=== PATIENT | male | born 1960 | race Caucasian/White ===

== ENCOUNTER 2021-11-27 14:27 | Inpatient (IN) | payer OTHER ==
[2021-11-27] MEDS ORDERED: SODIUM CHLORIDE 0.9% 1,000 ML IV STA (14:38)
[2021-11-27] MEDS ORDERED: MIDAZOLAM 1 MG/ML 5 ML VIAL IV STA (14:47)
[2021-11-27] MEDS ORDERED: NALOXONE 0.4 MG/ML 1 ML VIAL IV PRN (14:50)
[2021-11-27] MEDS ORDERED: ACETAMINOPHEN SUPPOSITORY 650 MG SUPP RECTAL PRN (14:50)
[2021-11-27] MEDS: NOREPINEPHRINE 8 MG in SODIUM CHLORIDE 0.9% 250 ML IV SCH ×4 (14:57→22:23)
--- NOTE | 2021-11-27 15:06 | ED ---
General Adult HPI - General Chief complaint: Cardiac Arrest/CPR Stated complaint: Post CPR Time Seen by Provider: 11/27/21 14:33 Source: EMS, RN notes reviewed, old records reviewed Mode of arrival: EMS Limitations: altered mental status, physical limitation - History of Present Illness Initial comments: 60-year-old male who presents status post cardiac arrest with return of spontaneous circulation. Patient had been transferred from [facility] after a witnessed cardiac arrest at home. Paramedics had been called for chest pain and dyspnea. The patient subsequently had a cardiopulmonary arrest, CPR was initiated immediately by paramedics. He was in PEA rhythm throughout resuscitation. He did respond to epinephrine according to EMS ultimately received TPA at [facility] this did result in return of spontaneous circulation. He was intubated, arterial line and central line had been placed. He was started on epinephrine drip and transferred for further evaluation and treatment. TPA was administered secondary concern for pulmonary embolism as the cause for cardiac arrest given the recent trauma to the left lower extremity and external fixation performed for fracture. - Related Data Allergies Allergy/AdvReac Type Severity Reaction Status Date / Time Penicillins Allergy Unknown Verified 11/27/21 14:47 Review of Systems ROS Statement: Those systems with pertinent positive or pertinent negative responses have been documented in the HPI. ROS Other: All systems not noted in ROS Statement are negative. Past Medical History Past Medical History: Unable to Obtain History of Any Multi-Drug Resistant Organisms: Unobtainable Past Surgical History: Unable to Obtain Smoking Status: Unknown if ever smoked Past Alcohol Use History: Unable to Obtain Past Drug Use History: Unable to Obtain General Exam General appearance: obtunded Head exam: Present: atraumatic, normocephalic Eye exam: Absent: PERRL (8 mm fixed) Respiratory exam: Present: other (bl breath sounds with vent) Cardiovascular Exam: Present: regular rate, normal rhythm GI/Abdominal exam: Present: soft. Absent: distended, guarding Extremities exam: Present: other (left LE ex-fix) Neurological exam: Present: other (intubated and sedated) Skin exam: Present: cyanosis (Cyanosis of the neck and upper chest) Course Vital Signs 11/27/21 14:36 Pulse Rate 87 Respiratory 22 Rate Blood Pressure 62/39 O2 Sat by Pulse 99 Oximetry EKG Findings - EKG Comments: EKG Findings:: EKG: Sinus rhythm prolonged CO low-voltage rate of 87, CO interval 203, QRS duration 81, QTC [address] segment elevation. Medical Decision Making - Medical Decision Making 60-year-old male transferred with return of spontaneous circulation, suspected massive pulmonary embolism after out of Hospital cardiac arrest. His total resuscitation efforts that lasted approximately 30-35 minutes. His pupils are fixed and dilated upon arrival. He is hypotensive and cyanotic. Pressor support will be continued. He will receive complete reevaluation of laboratory testing and ABG. Additionally receive her CT of the brain and CT angiography of the chest to evaluate for pulmonary embolism. These tests are pending. I discussed case with the admitting physician Dr. Cox and the netezza developer Dr. Hopper. He will be admitted to our ICU for further evaluation and treatment. Repeat chest x-ray, repeat laboratory testing, head CT, CT angiography results are pending. Angiography did show pulmonary emboli. I discussed case with Dr. Caldwell who will evaluate the patient in consultation. And does recommend heparin be initiated. This has been ordered. - Lab Data Result diagrams: 11/27/21 15:26 11/27/21 15:26 Critical Care Time Critical Care Time: Yes Total Critical Care Time: 35 Disposition Clinical Impression: Cardiac arrest, Signs of return of spontaneous circulation, Dependent on ventilator, Acute Massive Pulmonary Embolism Disposition: ADMITTED IP TO THIS [facility] Condition: Serious Is patient prescribed a controlled substance at d/c from ED?: No Decision to Admit Reason: Admit from EC Decision Date: 11/27/21 Decision Time: 15:30
[2021-11-27] MEDS ORDERED: NOREPINEPHRINE 8 MG in SODIUM CHLORIDE 0.9% 250 ML IV ONE (15:15)
--- NOTE | 2021-11-27 15:22 | XR ---
EXAMINATION TYPE: XR chest 1V portable DATE OF EXAM: 11/27/2021 COMPARISON: NONE HISTORY: Cardiac arrest TECHNIQUE: Single frontal view of the chest is obtained. FINDINGS: Endotracheal tube is superimposed over the tracheal air column. Right lung apex not entire ly included on exam. There is no evident pneumothorax. Lung volumes are low. Cardiac mediastinal silh ouette is within normal limits. No pleural effusion. Lung volumes are low. There are overlying artifa cts. IMPRESSION: No evident complication status post intubation. Expiratory exam.
[2021-11-27 15:31] LABS: HCT 30.5 % (39.0-53.0); HGB 9.4 gm/dL (13.0-17.5); MCH 33.7 pg (25.0-35.0); MCHC 30.7 g/dL (31.0-37.0); MCV 109.8 fL (80.0-100.0); RBC 2.78 m/uL (4.30-5.90); WBC 18.8 k/uL (3.8-10.6)
[2021-11-27 15:32] LABS: Hypochromasia Marked; Macrocytosis Marked; Platelet Count 164 k/uL (150-450); RDW 13.5 % (11.5-15.5)
--- NOTE | 2021-11-27 15:35 | CT ---
EXAMINATION TYPE: CT brain wo con DATE OF EXAM: 11/27/2021 COMPARISON: None HISTORY: Cardiac arrest. CT DLP: 1181.[address] of the brain was performed. The ventricles, basal cisterns and sulci overlying the cerebral convexities demonstrate mild enlargem ent. There is no evidence for intracranial hemorrhage or sulcal effacement. There is decreased attenuation about the periventricular white matter and deep white matter of both c erebral hemispheres, compatible with chronic small vessel ischemia. Differential diagnosis does inclu de demyelination. No mass effects are seen.No midline shift. Osseous calvarium is intact. If symptoms persist consider MRI. IMPRESSION: 1. Age related atrophic and chronic small vessel ischemic change without acute intracranial process s een at this time.
--- NOTE | 2021-11-27 15:39 | CT ---
EXAMINATION TYPE: CT angio chest DATE OF EXAM: 11/27/2021 COMPARISON: None HISTORY: Possible PE. Pt intubated, cardiac arrest. CT DLP: 412.5 mGycm CONTRAST: CT chest with contrast and 3D reconstruction with MIP imaging is performed with IV Contrast, patient injected with 100 mL of Isovue 370. Contrast-enhanced CT of the chest was performed through the course of the pulmonary arteries with roslyn g and mediastinal window settings submitted. 3D reconstruction with MIP imaging was also performed. PULMONARY ARTERIES: There are filling defects noted within first, second and third order branches of the pulmonary arteries left greater than right. No evidence for saddle component. LUNGS: Endotracheal tube is in place. The lungs are clear and free of infiltrate. No evidence for ate lectasis. No pulmonary nodule or mass is detected. No pleural effusion. MEDIASTINUM: Thoracic aorta is of normal caliber. The heart is mildly enlarged. No evidence for medi astinal mass. No mediastinal lymph nodes greater than 1cm. HILAR STRUCTURES: No evidence for mass. No hilar lymph nodes greater than 1 cm. UPPER ABDOMEN: No significant abnormality is seen. IMPRESSION: 1. Findings compatible with moderate pulmonary embolism.
[2021-11-27 15:41] LABS: Albumin 1.9 g/dL (3.5-5.0); Calcium 8.7 mg/dL (8.4-10.2); Magnesium 3.3 mg/dL (1.6-2.3); Potassium 4.8 mmol/L (3.5-5.1); Total Bilirubin 0.6 mg/dL (0.2-1.3); Total Protein 3.8 g/dL (6.3-8.2)
[2021-11-27 15:58] LABS: ABG Base Excess -22.5 mmol/L; ABG HCO3 11 mmol/L (21-25); ABG Oxygen Saturation 99.1 % (94-97); ABG PCO2 57 mmHg (35-45); ABG PO2 >400 mmHg (83-108); ABG TCO2 12 mmol/L (19-24)
[2021-11-27 15:59] LABS: Glucose,Whole Blood 301 mg/dL (75-99)
[2021-11-27 16:00] LABS: ABG PH 6.88 (7.35-7.45)
[2021-11-27] MEDS ORDERED: HEPARIN SODIUM 1,000 UN/ML (10ML VL) IV PRN (16:00)
[2021-11-27] MEDS ORDERED: HEPARIN SOD,PORK IN 0.45% NACL 25,000 UNIT in 0.45% NACL 1 250ML.BAG IV SCH (16:00)
[2021-11-27] MEDS ORDERED: HEPARIN SODIUM 1,000 UN/ML (10ML VL) IV ONE (16:00)
[2021-11-27 16:10] LABS: Band Neutrophils % 2 %; Eosinophils # (M) 0.38 k/uL (0-0.7); Lymphocytes # (M) 6.96 k/uL (1.0-4.8); Metamyelocytes # (M) 0.94 k/uL (0); Metamyelocytes % 5 %; Monocytes # (M) 0.38 k/uL (0-1.0); Myelocytes # (M) 0.56 k/uL (0); Myelocytes % 3 %; Neutrophils % (M) 51 %; Nucleated Red Blood Cells 0 /100 WBC (0-0); Poikilocytosis (M) Present; Total Cells Counted 200
--- NOTE | 2021-11-27 16:15 | P.HPIM ---
History of Present Illness H&P Date: 11/27/21 This is a 60-year-old male who was recently admitted and discharged at [facility] for recent left lower extremity and external fixation for a fracture. EMS was called and notified for shortness of breath from patient's home and ultimately a witnessed cardiac arrest and CPR was initiated and patient also received multiple rounds of epinephrine with no response and continued CPR in progress to [facility] and there was a concern for a PE as patient was not anticoagulated after his recent surgery. Patient did receive TPA at [facility] and resulted in return of spontaneous circulation. Patient was brought here for further evaluation and critical care monitoring. Initial lab testing shows a white blood count of 18.8 and hemoglobin is 9.4, platelets are 164, sodium is 143, potassium is 4.8, and cardiac site is 9, chloride is 110, BUN is 20, creatinine is 1.92, lactic acid is 16.6, calcium is 8.7, magnesium is 3.3, AST is 41, ALT is 428, alk phos is 71, troponin is 9.560. Patient is extremely hypotensive requiring pressor support and is currently not on any sedation and unresponsive. On exam patient's pupils are fixed and dilated with no response and patient is cyanotic. Patient is currently intubated with an FiO2 of 100% and PEEP is 8. Intensive care contacted and patient will be transferred to ICU for close monitoring. Vascular surgery consulted as well. Patient also had CT of the brain which shows age-related atrophic and chronic small vessel ischemic change without acute intracranial process seen at this time there is a decreased attenuation about the periventricular white matter and deep white matter of both cerebral hemispheres compatible with small vessel ischemia. Patient also underwent CT of the chest showing findings compatible with moderate pulmonary embolism and there are filling defects noted within the first second and third order branches of the pulmonary arteries left greater than right with no evidence for saddle component. Chest x-ray shows no evident complication status post intubation with no evident pneumothorax and no pleural effusion. Review of systems: Unable to obtain as patient had cardiac arrest and is now i ntubated Active Medications Acetaminophen (Acetaminophen Suppository 650 Mg Supp) 650 mg RECTAL Q4HR PRN PRN Reason: Fever And/ Or Mild Pain Sodium Chloride (Saline 0.9%) 1,000 mls @ 75 mls/hr IV .[id number] STA Stop: 11/28/21 03:57 Propofol 1,000 mg/ IV Solution 100 mls @ 0 mls/hr IV .Q0M [facility]; Protocol Norepinephrine Bitartrate 8 mg (/ Sodium Chloride) 258 mls @ 7.68 mls/hr IV .Q24H [facility]; Protocol Last Admin: 11/27/21 14:57 Dose: 0.4 mcg/kg/min, 61.439 mls/hr Documented by: Naloxone HCl (Naloxone 0.4 Mg/Ml 1 Ml Vial) 0.2 mg IV Q2M PRN PRN Reason: Opioid Reversal PHYSICAL EXAMINATION: GENERAL: The patient is currently intubated and not currently on any sedation and continues to be comatose and unresponsive HEENT: Pupils are fixed and dilated with no reaction to light. No scleral icterus. No conjunctival pallor. Normocephalic, atraumatic. No pharyngeal erythema. No thyromegaly. CARDIOVASCULAR: S1 and S2 muffled PULMONARY: diminished breath sounds bilaterally with no wheezing or rhonchi noted. ABDOMEN: soft. Thin. Nontender on exam. obese. non-distended, normoactive bowel sounds. No palpable organomegaly. MUSCULOSKELETAL: No joint swelling or deformity. EXTREMITIES: There is cyanosis noted to the upper chest neck and face and pallor to the left lower extremity and with pins, rods, fixation noted from recent fracture repair and no palpable pulses. NEUROLOGICAL: Unable to assess as patient is intubated and comatose SKIN: cyanosis as mentioned previously Assessment: Cardiac arrest, witnessed with return of spontaneous circulation, at [facility] status post TPA infusion for suspected PE at [facility] Status post mechanical ventilation with no sedation and patient is comatose Elevated troponin of 9.560 Hypermagnesemia of 3.3 Increased LFTs Elevated creatinine possible acute renal failure Leukocytosis, possibly reactive Lactic acidosis with a plasma lactic acid of 16.6 most likely secondary to CPR Positive pulmonary embolism as noted on CT here Recent left lower extremity external fixation for fracture at [facility] Hypotension requiring pressors Full code Plan: Recommend to continue with current medications and management per ICU carrot harvester. Patient was given TPA at [facility] with ROSC obtained and CTA was done here which was positive for pulmonary embolism. CT of the brain was unremarkable. Patient is hypotensive requiring pressor support and does have propofol ordered although not requiring it and continues to be comatose. Patient overall prognosis is extremely poor and extremely guarded and will be monitored closely in the ICU. Vascular surgery consulted as well, which is p ending. Patient had recent external fixation and there is hardware noted of the left lower extremity and there is extreme pallor with no pulses palpable of the left lower extremity. Apparently patient had not been receiving anticoagulation after the surgery as they were possible issues with the insurance as [facility] and family is also unsure of this. Critical condition and prognosis was discussed with the family and would like to keep the patient full code for now until further assessment by carrot harvester. Patient is mechanically intubated with an FiO2 100% and PEEP is 8. Due to multiple complex medical issues, prognosis is extremely guarded The impression and plan of care has been dictated by Jayla Covarrubias, nurse practitioner as directed. Dr. Andre Cox MD I have performed a history and examination and MDM of this patient, discussed the same with the dictator, and agree with the dictator's assessment and plan as written ,documented as a scribe. Based on total visit time, I have performed more than 50% of the visit. Any additional findings or plans will be noted. Review of Systems ROS unobtainable: due to endotracheal tube, due to mental status Constitutional: Denies chills, Denies fever Past Medical History Past Medical History: Unable to Obtain History of Any Multi-Drug Resistant Organisms: Unobtainable Past Surgical History: Unable to Obtain Smoking Status: Unknown if ever smoked Past Alcohol Use History: Unable to Obtain Past Drug Use History: Unable to Obtain Medications and Allergies Allergies Allergy/AdvReac Type Severity Reaction Status Date / Time Penicillins Allergy Unknown Verified 11/27/21 14:47 Physical Exam Vitals: Vital Signs Pulse Resp BP Pulse Ox 11/27/21 14:36 87 22 62/39 99 Intake and Output 11/27/21 11/27/21 11/27/21 06:59 14:59 22:59 Other: Weight 79.379 kg Results CBC & Chem 7: 11/27/21 15:26 11/27/21 15:26 Assessment and Plan Time with Patient: Greater than 30
[2021-11-27] MEDS ORDERED: SODIUM BICARB 8.4% 50 ML SYR (1 MEQ/ML) IV STA ×2 (16:22→18:17)
[2021-11-27 16:50] LABS: Glucose,Whole Blood 289 mg/dL (75-99)
[2021-11-27 17:05] VITALS: BP 134/77
[2021-11-27] MEDS ORDERED: SODIUM CHLORIDE 0.9% 1,000 ML IV ONE ×2 (17:42→18:09)
[2021-11-27] MEDS ORDERED: SODIUM CHLORIDE 0.9% 1,000 ML IV SCH (17:45)
[2021-11-27 18:03] LABS: ABG HCO3 12 mmol/L (21-25); ABG Oxygen Saturation 97.7 % (94-97); ABG PCO2 44 mmHg (35-45); ABG PO2 150 mmHg (83-108); ABG TCO2 14 mmol/L (19-24); Allen Test Performed? Yes
[2021-11-27 18:05] LABS: ABG PH 7.06 (7.35-7.45)
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
--- NOTE | 2021-11-27 18:13 | P.PCN ---
Date of Procedure: 11/27/21 Preoperative Diagnosis: Cardiac arrest Postoperative Diagnosis: Cardiac arrest Procedure(s) Performed: Triple-lumen catheter insertion Anesthesia: local Surgeon: Emiliano Hopper Pathology: other Condition: critical Disposition: ICU Operative Findings: Indication: Hemodynamic monitoring/Intravenous access. A time-out was completed verifying correct patient, procedure, site, positioning, and implant(s) or special equipment if applicable. The patient was placed in a dependent position appropriate for central line placement based on the vein to be cannulated. The patients left neck was prepped and draped in sterile fashion. 1% Lidocaine was used to anesthetize the surrounding skin area. A triple lumen 9F Cordis catheter was introduced into the internal jugular vein using Seldinger technique. The catheter was threaded smoothly over the guide wire and appropriate blood return was obtained. Each lumen of the catheter was evacuated of air and flushed with sterile saline. The catheter was then sutured in place to the skin and a sterile dressing applied. Perfusion to the extremity distal to the point of catheter insertion was checked and found to be adequate. The patient tolerated the procedure well and there were no complications.
[2021-11-27] MEDS ORDERED: ASPIRIN 81 MG PO STA (18:18)
[2021-11-27 18:21] LABS: INR >10.0 (<1.2)
[2021-11-27 18:22] LABS: Partial Thromboplastin Time >200.0 sec (22.0-30.0); Prothrombin Time >130.0 sec (9.0-12.0)
[2021-11-27] MEDS ORDERED: INSULIN REGULAR BOLUS (FROM DRIP BAG) IV PRN (18:23)
--- NOTE | 2021-11-27 18:27 | XR ---
EXAMINATION TYPE: XR chest 1V portable DATE OF EXAM: 11/27/2021 COMPARISON: 11/27/2019 2:53 PM HISTORY: 60 years Male. STUDY INDICATION GIVEN: verify central line placement . TECHNIQUE: AP chest radiograph IMPRESSION: Interval placement of left jugular central venous catheter, tip is at the cavoatrial junction. Tip of endotracheal tube in the midthoracic trachea. No focal airspace opacity, pneumothorax or effusion. N ormal cardiomediastinal silhouette.
[2021-11-27] MEDS ORDERED: INSULIN REGULAR 100 UNIT in SODIUM CHLORIDE 0.9% 100 ML IV SCH (18:30)
[2021-11-27] MEDS: SODIUM BICARB 8.4% 50 ML SYR (1 MEQ/ML) IV STA (18:34)
[2021-11-27 19:15] LABS: Glucose,Whole Blood 220 mg/dL (75-99)
--- NOTE | 2021-11-27 19:26 | US ---
EXAMINATION TYPE: US venous doppler duplex LE DATE OF EXAM: 11/27/2021 6:58 PM COMPARISON: NONE CLINICAL HISTORY: s/p cardiac arrest. SIDE PERFORMED: Bilateral TECHNIQUE: The lower extremity deep venous system is examined utilizing real time linear array sonog yuliana with graded compression, doppler sonography and color-flow sonography. VESSELS IMAGED: Common Femoral Vein Deep Femoral Vein Greater Saphenous Vein * Femoral Vein Popliteal Vein Small Saphenous Vein * Proximal Calf Veins (* superficial vessels) Limited scan, patient on vent with below limitations. Right Leg: Unable to scan patient groin due to IV. Normal compressibility and flow in the imaged deep veins of the right lower extremity. Left Leg: Unable to scan popliteal vein due to device on calf holding leg steady (unable to abduct p atient leg). Abnormal compression, absent flow and hypoechoic filling defect in the distal aspect of the left femo ral vein. IMPRESSION: Deep vein thrombosis of the left distal femoral vein. Report given to @ 7:23pm to Carlos Alberto Gomez charge nurse of [facility]
[2021-11-27 20:06] LABS: Glucose,Whole Blood 193 mg/dL (75-99)
[2021-11-27] MEDS ORDERED: SODIUM CHLORIDE 0.9% 150 ML with VASOPRESSIN 60 UNIT IV SCH ×2 (21:00)
[2021-11-27] MEDS ORDERED: PANTOPRAZOLE 40 MG/10 ML VIAL IVP SCH (21:00)
[2021-11-27] MEDS: LACTATED RINGERS 2,000 ML IV SCH ×2 (21:02→22:22)
[2021-11-27 21:11] LABS: Glucose,Whole Blood 124 mg/dL (75-99)
[2021-11-27 21:20] LABS: HCT 26.2 % (39.0-53.0); HGB 8.4 gm/dL (13.0-17.5); Hypochromasia Slight; MCHC 31.9 g/dL (31.0-37.0); Macrocytosis Slight; Mean Platelet Volume 8.2; Platelet Count 276 k/uL (150-450); RBC 2.54 m/uL (4.30-5.90)
[2021-11-27 21:35] LABS: MCV 103.2 fL (80.0-100.0)
[2021-11-27 21:47] LABS: Band Neutrophils % 1 %; Eosinophils # (M) 0.35 k/uL (0-0.7); Lymphocytes # (M) 6.65 k/uL (1.0-4.8); Metamyelocytes % 2 %; Myelocytes # (M) 1.05 k/uL (0); Myelocytes % 3 %; Neutrophils % (M) 75 %; Nucleated Red Blood Cells 1 /100 WBC (0-0); Total Cells Counted 200
[2021-11-27 21:59] LABS: Prothrombin Time >130.0 sec (9.0-12.0)
[2021-11-27 22:02] LABS: INR >10.0 (<1.2); Partial Thromboplastin Time >200.0 sec (22.0-30.0)
[2021-11-27 22:04] LABS: Glucose,Whole Blood 99 mg/dL (75-99)
--- NOTE | 2021-11-27 22:31 | XR ---
EXAMINATION TYPE: XR tibia fibula LT DATE OF EXAM: 11/27/2021 COMPARISON: NONE HISTORY: 60 years Male. STUDY INDICATION GIVEN: ex/fix recent procedure . TECHNIQUE: Frontal and lateral radiographs of the left tibia and fibula IMPRESSION: External fixation devices are seen in the proximal tibia and in the calcaneus. Comminuted slightly displaced early angulated fractures of the distal tibial diaphysis are seen. Ther e is asymmetric appearance of the tibiotalar joint, the lateral clear space is more narrowed compared to the medial. Comminuted slightly displaced fractures of the distal fibula are seen. These appear to be a Galeano typ e B/C fractures. Tibiofibular syndesmosis may be disrupted. Mild soft tissue swelling is seen in the imaged lower extremity.
[2021-11-27 22:59] LABS: Glucose,Whole Blood 72 mg/dL (75-99)
[2021-11-27] MEDS ORDERED: DEXTROSE 5% IN WATER 1,000 ML IV SCH (23:30)
[2021-11-27] MEDS ORDERED: DEXTROSE 50% SYRINGE 50 ML IVP STA (23:54)
[2021-11-27] MEDS ORDERED: DEXTROSE 50% SYRINGE 50 ML IVP ONE (23:55)
[2021-11-28] MEDS: NOREPINEPHRINE 8 MG in SODIUM CHLORIDE 0.9% 250 ML IV SCH ×2
[2021-11-28 00:01] LABS: Glucose,Whole Blood 67 mg/dL (75-99)
[2021-11-28 00:20] LABS: Glucose,Whole Blood 229 mg/dL (75-99)
[2021-11-28 00:49] LABS: Glucose,Whole Blood 182 mg/dL (75-99)
[2021-11-28 01:21] LABS: Albumin 1.6 g/dL (3.5-5.0); Calcium 6.6 mg/dL (8.4-10.2); Total Bilirubin 1.2 mg/dL (0.2-1.3); Total Protein 3.3 g/dL (6.3-8.2)
[2021-11-28 01:45] LABS: Potassium 7.9 mmol/L (3.5-5.1)
[2021-11-28 02:00] VITALS: PULSE 96; RESP 24; TEMP 96.1
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
--- NOTE | 2021-12-02 08:44 | CDI ---
Documentation Clarification Form Date: 12/02/21 From: Mitra Seals Admit Date: 11/27/2021 02:50:00 PM Patient Name: Sergey Jane Jr Visit Number: [id number] Discharge Date: 11/28/2021 03:52:00 AM ATTENTION: The Clinical Documentation Specialists (CDI) and [facility] Coding Staff appreciate your assistance in clarifying documentation. Please respond to the clarification below the line at the bottom and electronically sign. The CDI & [facility] Coding staff will review the response and follow-up if needed. Please note: Queries are made part of the Legal Health Record. If you have any questions, please contact the author of this message via ITS. Dr. Powell E Sheet, Your patient has per 11/07 US doppler of left lower extremity deep vein thrombosis of the left distal femoral vein. Based on this information and the findings below, is there an additional diagnosis that is clinically appropriate for this patient? Patient history/risk factors: acute bilateral pulmonary embolism, acute hypoxic respiratory failure, comatose, NSTEMI, BLANCA, anoxic encephalopathy, cardiac arrest from PE Clinical Indicators: Per Dr. Hopper's consult: Extremities revealed a cold left foot is also pale. Absent pulses in the left foot, absent pulses in the left popliteal, positive pulses in the left femoral. Acute vascular insufficiency with absent pulses in the left foot. Treatment: US doppler of bilateral extremities, IV Heparin, Is there an additional diagnosis that is clinically appropriate for this patient? [ ] DVT left distal femoral vein [ ] Other, please specify [ ] Unable to determine DVT left distal femoral vein MTDD
== END 2021-11-28 03:52 | disposition expired | DRG 208 ==
LOC: EC 14:27 → 2SICU 14:50
PROVIDERS: ADMIT Internal Medicine; ATTEND Internal Medicine
PROC: 5A1935Z Respiratory Ventilation, Less than 24 Consecutive Hours (ICD-10-PCS; principal; 2021-11-27)
PROC: 3E033XZ Introduction of Vasopressor into Peripheral Vein, Percutaneous Approach (ICD-10-PCS; 2021-11-27)
PROC: 02HV33Z Insertion of Infusion Device into Superior Vena Cava, Percutaneous Approach (ICD-10-PCS; 2021-11-27)
DX: I26.99 Other pulmonary embolism without acute cor pulmonale (principal); J96.01 Acute respiratory failure with hypoxia; R40.20 Unspecified coma; I21.4 Non-ST elevation (NSTEMI) myocardial infarction; N17.9 Acute kidney failure, unspecified; G93.1 Anoxic brain damage, not elsewhere classified; E87.2 Acidosis; I82.412 Acute embolism and thrombosis of left femoral vein; I46.8 Cardiac arrest due to other underlying condition; E83.41 Hypermagnesemia; Z51.5 Encounter for palliative care; Z66 Do not resuscitate; R73.9 Hyperglycemia, unspecified; D72.829 Elevated white blood cell count, unspecified; S82.832D Other fracture of upper and lower end of left fibula, subsequent encounter for closed fracture with routine healing; R74.01 Elevation of levels of liver transaminase levels; Z92.82 Status post administration of tPA (rtPA) in a different facility within the last 24 hours prior to admission to current facility; Z79.899 Other long term (current) drug therapy; Z88.0 Allergy status to penicillin; V86.92XD Unspecified occupant of snowmobile injured in nontraffic accident, subsequent encounter
CPT/HCPCS: 70450; 71045; 71275; 80053; 82805; 83605; 83735; 84484; 85025; 85610; 85730; 87070; 87205; 93005; 93970; 94002; 94003; 99291